=== PATIENT | male | born 1980 | race Caucasian/White ===

== ENCOUNTER 2021-01-03 07:24 | Day surgery (SDC) | payer MEDICAID, SELFPAY ==
[~2021-01-03] VITALS: Ht 185.4 cm; Wt 124.7 kg
[2021-01-03] MEDS ORDERED: SIMETHICONE 40 MG/0.6 ML ML ONE (08:11)
[2021-01-03] MEDS: MIDAZOLAM HCL 5 MG/5 ML VIAL ONE ×4 (08:20→08:28)
[2021-01-03] MEDS: fentaNYL CITRATE/PF 100 MCG/2 ML AMP ONE ×3 (08:21→08:25)
[2021-01-03] MEDS ORDERED: DIPHENHYDRAMINE INJ 50 MG/ML VIAL ONE (08:34)
[2021-01-03 13:09] VITALS: BP_SYST 153
== END 2021-01-03 10:05 | disposition home or self-care (01) ==
LOC: SDS 07:24 → SMU 07:26 → SDS 10:05
PROVIDERS: ATTEND Internal Medicine
DX: K62.5 Hemorrhage of anus and rectum (principal); K57.30 Diverticulosis of large intestine without perforation or abscess without bleeding; K64.8 Other hemorrhoids; Z20.828 Contact with and (suspected) exposure to other viral communicable diseases; E78.00 Pure hypercholesterolemia, unspecified; I10 Essential (primary) hypertension; Z79.4 Long term (current) use of insulin; Z79.899 Other long term (current) drug therapy
CPT/HCPCS: 45378; 82962; 99152; G0378; J1200; J2250; J3010; J7030; U0003